=== PATIENT | female | born 1960 | race Caucasian/White ===

== ENCOUNTER 2023-04-26 13:19 | Observation (INO) ==
[2023-04-26 13:49] LABS: ABS Basophils 0.1 10^3/uL (0.0-0.1); ABS Lymphocytes 1.2 10^3/uL (1.0-4.8); ABS Neutrophils 10.1 10^3/uL (1.5-7.6); ABS Nucleated RBC 0.01 10^3/ul; Hematocrit 39.3 % (35-45); Hemoglobin 13.7 g/dL (11.5-14.3); Lymphocyte % 9.9 %; Mean Corpuscular Hemoglobin 29.5 pg (27-33); Mean Corpuscular Hgb Conc 34.8 g/dL (31-36); Mean Corpuscular Volume 84.9 fL (80-97); Mean Platelet Volume 8.4 fL (7.5-11.2); Nucleated Red Blood Cells % 0.1 %/100WBC (0.0-0.8); Platelet Count 293 10^3/uL (150-450); Red Blood Count 4.63 10^6/uL (3.63-4.92); Red Cell Distribution Width 13.5 % (12-17); White Blood Count 12.4 10^3/uL (3.8-11.8)
[2023-04-26 13:55] LABS: INR 1.25 (0.83-1.13)
[2023-04-26 14:07] LABS: Albumin/Globulin Ratio 1.1 (1-3); Calcium 8.9 mg/dL (8.6-10.3); Creatinine, Serum 0.74 mg/dL (0.51-0.95); Globulin 3.7 g/dL (2-4); Potassium 3.8 mmol/L (3.5-5.0); Total Bilirubin 0.4 mg/dL (0.2-1.0); Total Protein 7.7 g/dL (6.4-8.9); eGFR CKD-EPI 90.9 (>60)
[2023-04-26 15:49] LABS: High Sensitivity Troponin 1 Hr 5 pg/mL (<15)
[2023-04-26] MEDS ORDERED: Lactated Ringers 1000 ml BAG 1,000 ML IV ONE (18:17)
[2023-04-26] MEDS ORDERED: Albuterol/Ipratropium NEB.SOL (2.5/0.5 MG) 3 ML NEB.SOLN INH PRN (18:17)
[2023-04-26] MEDS ORDERED: Magnesium Sulfate 2 gm BAG 2 GM/50 ML BAG IVPB ONE (18:17)
[2023-04-26] MEDS ORDERED: methylPREDNISolone SOD SUCC 125 mg 2 ML VIAL IV ONE (18:19)
[2023-04-26] MEDS ORDERED: Iohexol 350 (CONTRAST) 500 ML MDV IV ONE (18:27)
[2023-04-26] MEDS ORDERED: Famotidine IV 10 MG/ML 2 ml VIAL (20 mg) IV SLOW PU ONE (19:00)
[2023-04-26] MEDS ORDERED: Azithromycin 500 mg/250 ml NS 500 MG/250 ML BAG IVPB ONE (20:47)
[2023-04-26] MEDS ORDERED: Cefepime 2 GM in Dextrose 2 GM/50 ML BAG IV ONE (20:47)
[2023-04-26] MEDS ORDERED: Furosemide 40 mg/4 ml IV VIAL IV ONE (20:50)
[2023-04-27] MEDS: cefTRIAXone 1 gm/50 mL D5W 1 GM/50 ML BAG IV SCH (07:30)
[2023-04-27] MEDS: Enoxaparin 40 MG/0.4 ML SYR SUBCUT SCH (07:30)
[2023-04-27 07:52] LABS: ABS Lymphocytes 0.9 10^3/uL (1.0-4.8); ABS Monocytes 0.3 10^3/uL (0.0-0.9); ABS Neutrophils 9.9 10^3/uL (1.5-7.6); ABS Nucleated RBC 0.01 10^3/ul; Hematocrit 42.1 % (35-45); Hemoglobin 14.4 g/dL (11.5-14.3); Lymphocyte % 8.1 %; Mean Corpuscular Hemoglobin 29.3 pg (27-33); Mean Corpuscular Hgb Conc 34.2 g/dL (31-36); Mean Corpuscular Volume 85.9 fL (80-97); Mean Platelet Volume 8.3 fL (7.5-11.2); Nucleated Red Blood Cells % 0.1 %/100WBC (0.0-0.8); Platelet Count 310 10^3/uL (150-450); Red Cell Distribution Width 13.6 % (12-17); White Blood Count 11.1 10^3/uL (3.8-11.8)
[2023-04-27 08:08] LABS: Creatinine, Serum 0.77 mg/dL (0.51-0.95); Potassium 4.4 mmol/L (3.5-5.0); eGFR CKD-EPI 86.6 (>60)
[2023-04-27] MEDS ORDERED: guaiFENesin 100 mg/5 ml LIQ unit dose cup PO PRN (22:58)
[2023-04-28] MEDS: Albuterol HFA INHALER 8 gm MDI INH PRN ×3 (01:40→10:30)
[2023-04-28] MEDS: Enoxaparin 40 MG/0.4 ML SYR SUBCUT SCH (05:35)
[2023-04-28] MEDS: cefTRIAXone 1 gm/50 mL D5W 1 GM/50 ML BAG IV SCH (05:43)
[2023-04-28 06:18] LABS: Hematocrit 38.7 % (35-45); Hemoglobin 13.4 g/dL (11.5-14.3); Mean Corpuscular Hemoglobin 29.5 pg (27-33); Mean Corpuscular Hgb Conc 34.7 g/dL (31-36); Mean Corpuscular Volume 84.9 fL (80-97); Mean Platelet Volume 8.7 fL (7.5-11.2); Platelet Count 303 10^3/uL (150-450); Red Blood Count 4.55 10^6/uL (3.63-4.92); Red Cell Distribution Width 13.2 % (12-17)
[2023-04-28 06:32] LABS: Calcium 9.2 mg/dL (8.6-10.3); Creatinine, Serum 0.69 mg/dL (0.51-0.95); Magnesium 2.3 mg/dL (1.9-2.7); Potassium 3.8 mmol/L (3.5-5.0); eGFR CKD-EPI 97.5 (>60)
[2023-04-28 07:07] LABS: ABS Lymphocytes 2.2 10^3/uL (1.0-4.8); ABS Neutrophils 5.9 10^3/uL (1.5-7.6); ABS Nucleated RBC 0.01 10^3/ul; Eosinophil % 0.1 %; Lymphocyte % 24.2 %; Nucleated Red Blood Cells % 0.1 %/100WBC (0.0-0.8)
[2023-04-28] MEDS ORDERED: KCL 20 MEQ/100 ML IVPREMIX 20 MEQ/100 ML BAG IV ONE (07:17)
[2023-04-28] MEDS ORDERED: Saline NASAL SPRAY 0.65% BTL BOTH NARES SCH (09:30)
[2023-04-28 09:34] VITALS: BP 122/76
[2023-04-28] MEDS ORDERED: Potassium Chlor 10 meq TAB PO ONE (09:37)
== END 2023-04-28 14:59 | disposition home or self-care (01) ==
LOC: ED 13:19 → EDHOLD 13:19 → SUATTDRO 22:16 → MED 04-27 09:44
PROVIDERS: ADMIT Internal Medicine; ATTEND Hospitalist